=== PATIENT | male | born 1950 | race Hispanic/Latino ===

== ENCOUNTER 2019-07-10 08:26 | Outpatient (CLI) | payer MEDICARE ==
--- NOTE | 2019-07-10 11:46 | Ultrasound Report ---
Scrotal Ultrasound HISTORY: HEMATOSPERMIA. TECHNIQUE: Grayscale and color Doppler imaging performed. COMPARISON: None FINDINGS: Right testicle is normal in size and appearance with preserved blood flow. There is a moderate size h ydrocele. A small epididymal head cyst is also present measuring approximately 5 mm. Left testicle is normal in size and appearance with preserved blood flow. A small epididymal head cys t measuring 7 mm is present. There is a small hydrocele. The vessels and the left-sided spermatic cor d are prominent measuring approximately 4 mm on average (2-3 mm is generally considered normal) witho ut Valsalva. IMPRESSION: 1. Moderate right and small left scrotal hydroceles. 2. Left-sided varicocele. 3. Bilateral tiny epididymal head cysts. Signer Name: Erik Dao MD Signed: 07/10/2019 11:41 AM Workstation Name: [id number]
== END 2019-07-10 08:27 | disposition home or self-care (01) ==
LOC: US 08:26
PROVIDERS: ATTEND Urology
DX: N43.2 Other hydrocele (principal)
CPT/HCPCS: 93975